=== PATIENT | male | born 1945 | race Caucasian/White ===

== ENCOUNTER 2022-04-23 01:05 | Emergency (ER) | payer OTHER ==
[~2022-04-23] VITALS: Ht 175.3 cm; Wt 75.0 kg
[2022-04-23] MEDS ORDERED: SODIUM CHLORIDE 0.9% 1,000 ML IV ONE (01:30)
[2022-04-23] MEDS ORDERED: ASPIRIN 81MG TABLET PO ONE (01:30)
[2022-04-23 02:18] LABS: BASOPHILS % 0.7 % (0.0-2.0); EOSINOPHILS % 0.3 % (0.0-5.0); HEMOGLOBIN. 13.1 g/dL (14.0-18.0); LYMPHOCYTES % 11.4 % (20.0-50.0); MEAN CORPUSCULAR HEMOGLOBIN 28.9 pg (28.0-32.0); MEAN CORPUSCULAR VOLUME 88.4 fL (80.0-94.0); MEAN PLATELET VOLUME 8.3 fl (7.4-10.4); MONOCYTES % 11.3 % (2.0-8.0); NEUTROPHILS % 76.3 % (40.0-76.0); PLATELET 248 x1000/uL (130-400); RED BLOOD CELL COUNT 4.52 mill/uL (4.7-6.1); RED CELL DISTRIBUTION WIDTH 16.6 % (11.6-14.6)
[2022-04-23 02:27] LABS: CHLORIDE 107 mEq/L (98-107)
[2022-04-23 02:37] LABS: ETHANOL BLOOD < 10 mg/dL
[2022-04-23 07:45] VITALS: BP 141/60
[2022-04-23] MEDS ORDERED: ONDANSETRON HCL 4MG/2ML INJ IV PRN (07:45)
[2022-04-23] MEDS ORDERED: ACETAMINOPHEN 325MG TABLET PO PRN ×2 (07:45)
[2022-04-23] MEDS ORDERED: GUAIFENESIN 200MG/10ML SUGAR FREE UDC PO PRN (07:45)
[2022-04-23] MEDS ORDERED: DOCUSATE SODIUM 100MG CAPSULE PO PRN (07:45)
[2022-04-23] MEDS ORDERED: KETOROLAC 15MG/ML VIAL IV PRN (07:45)
[2022-04-23] MEDS ORDERED: IPRATROPIUM/ALBUTEROL 0.5-3(2.5)MG/3ML NEB NEB PRN (07:45)
[2022-04-23] MEDS ORDERED: MAGNESIUM/ALUMINUM HYDROXIDE/SIMETHICONE 30ML UDC PO PRN (07:45)
[2022-04-23] MEDS ORDERED: CLONIDINE 0.1MG TABLET PO PRN (07:45)
[2022-04-23] MEDS ORDERED: NITROGLYCERIN 0.4MG TABLET SL SL PRN (08:00)
[2022-04-23] MEDS ORDERED: ASPIRIN 325MG EC TABLET PO SCH (09:00)
[2022-04-23] MEDS ORDERED: FAMOTIDINE 20MG TABLET PO SCH (09:00)
[2022-04-23] MEDS ORDERED: ENOXAPARIN 40MG/0.4ML SYR SUBCUT SCH (09:00)
[2022-04-23] MEDS ORDERED: ZOLPIDEM TARTRATE 5MG TABLET PO PRN (21:00)
== END 2022-04-23 08:19 | disposition left against medical advice (07) ==
LOC: ER 01:05 → CANBEDREQ 04-24 01:35
DX: R55 Syncope and collapse (principal); R42 Dizziness and giddiness; I95.9 Hypotension, unspecified; R79.89 Other specified abnormal findings of blood chemistry
CPT/HCPCS: 36415; 70450; 71045; 80053; 80320; 83605; 83690; 83880; 84484; 85025; 93005; 96360; 96361; 99285; J7030; G0480